=== PATIENT | male | born 1945 | race Caucasian/White ===

== ENCOUNTER 2018-10-07 15:17 | Emergency (ER) | payer MEDICARE, OTHER ==
[~2018-10-07] VITALS: Ht 177.8 cm; Wt 75.0 kg
[2018-10-07 15:31] VITALS: BP 138/82
[2018-10-07] MEDS ORDERED: HYDR-4353 PO (15:48)
== END 2018-10-07 16:04 | disposition home or self-care (01) ==
LOC: ER 15:18
DX: M25.519 Pain in unspecified shoulder (principal); M86.9 Osteomyelitis, unspecified; G89.29 Other chronic pain; Z79.899 Other long term (current) drug therapy
CPT/HCPCS: 99283